=== PATIENT | male | born 1975 | race Native Hawaiian/Other Pacific Islander ===

== ENCOUNTER 2021-03-27 13:42 | Outpatient (CLI) | payer BC, OTHER ==
[~2021-03-27] VITALS: Ht 182.9 cm; Wt 108.9 kg
== END 2021-03-27 21:15 | disposition home or self-care (01) ==
LOC: INF 13:42
PROVIDERS: ATTEND Internal Medicine
DX: Z23 Encounter for immunization (principal); U07.1 COVID-19
CPT/HCPCS: 96365; M0244